=== PATIENT | male | born 1995 | race Two or more races ===

== ENCOUNTER 2020-10-15 16:45 | Emergency (ER) | payer MEDICAID ==
[~2020-10-15] VITALS: Ht 185.4 cm; Wt 72.6 kg
[2020-10-15 19:43] VITALS: BP 109/70
== END 2020-10-15 20:24 | disposition home or self-care (01) ==
LOC: ER 16:45
DX: U07.1 COVID-19 (principal)
CPT/HCPCS: 36415; 71045; 87426

== ENCOUNTER → 2023-05-31 | Emergency (ER) | payer MEDICAID | LOC: ER 00:34 | DX: R09.89 Other specified symptoms and signs involving the circulatory and respiratory systems (principal); Z53.21 Procedure and treatment not carried out due to patient leaving prior to being seen by health care provider ==